=== PATIENT | male | born 1990 | race Hispanic/Latino ===

== ENCOUNTER 2019-01-29 03:02 | Emergency (ER) | payer OTHER ==
[2019-01-29 03:05] VITALS: BMI 29.4
--- NOTE | 2019-01-29 05:43 | ED PDOC ---
HPI: Psych/Substance Abuse Time Seen by Provider: 01/29/19 03:04 Chief Complaint (Nursing): Alcohol Ingestion Chief Complaint (Provider): Alcohol Ingestion ED Caveat: Intoxicated History Per: EMS History/Exam Limitations: intoxication Additional Complaint(s): 28 years old male brought in by EMS for alcohol intoxication. Patient admits to drinking alcohol tonight. He offers no complaints and denies any drugs or injuries. History is limited due to patient's intoxicated state. PMD: None provided Past Medical History Reviewed: Historical Data, Nursing Documentation, Vital Signs Vital Signs: Last Vital Signs Temp 97.5 F L 01/29/19 03:05 Pulse 88 01/29/19 03:05 Resp 18 01/29/19 03:05 BP 132/81 01/29/19 03:05 Pulse Ox 98 01/29/19 03:05 - Medical History PMH: No Chronic Diseases - Surgical History Surgical History: No Surg Hx - Family History Family History: States: Unknown Family Hx - Social History Alcohol: Social Drugs: Denies - Immunization History Hx Tetanus Toxoid Vaccination: Yes - Home Medications Home Medications: Ambulatory Orders Medication Instructions Recorded Fish Oil 1 tab PO DAILY 07/15/16 Multivitamin [Multivitamins] 1 tab PO DAILY 07/15/16 - Allergies Allergies/Adverse Reactions: Allergies Allergy/AdvReac Type Severity Reaction Status Date / Time No Known Allergies Allergy Unverified 01/29/19 03:05 Review of Systems Review Of Systems: ROS cannot be obtained secondary to pt's inabilty to answer questions. Physical Exam - Reviewed Nursing Documentation Reviewed: Yes Vital Signs Reviewed: Yes - Physical Exam Appears: Positive for: No Acute Distress. Negative for: Non-toxic (intoxicated appearing) Head Exam: Positive for: ATRAUMATIC, NORMOCEPHALIC Skin: Positive for: Normal Color, Warm, Dry Eye Exam: Positive for: Normal appearance, EOMI, PERRL Neck: Positive for: Normal, Painless ROM, Supple Cardiovascular/Chest: Positive for: Regular Rate, Rhythm. Negative for: Murmur Respiratory: Positive for: Normal Breath Sounds. Negative for: Respiratory Distress Gastrointestinal/Abdominal: Positive for: Normal Exam, Soft. Negative for: Tenderness Back: Positive for: Normal Inspection. Negative for: L CVA Tenderness, R CVA Tenderness Extremity: Positive for: Normal ROM - ECG O2 Sat by Pulse Oximetry: 98 (RA) Pulse Ox Interpretation: Normal Medical Decision Making Medical Decision Making: Time: 336 A/P: Alcohol intoxication without signs of injury --Will monitor for sobriety 630 --Patient is awake alert, steady gait, suitable for discharge Scribe Attestation: Documented by Karely Adams, acting as a scribe for Dino Franks MD. Provider Scribe Attestation: All medical record entries made by the Scribe were at my direction and personally dictated by me. I have reviewed the chart and agree that the record accurately reflects my personal performance of the history, physical exam, medical decision making, and the department course for this patient. I have also personally directed, reviewed, and agree with the discharge instructions and disposition. Disposition - Clinical Impression Clinical Impression: Alcohol abuse - Patient ED Disposition Is Patient to be Admitted: No - Disposition Referrals: Alcoholics Anonymous [Outside] Disposition: Routine/Home Disposition Time: 06:55 Condition: IMPROVED Instructions: Effects of Alcohol on Your Health Forms: Unmetric (Namibian)
[2019-01-29 07:02] VITALS: BP 123/74; PULSE 76; RESP 19; TEMP 98.2; O2SAT 99
== END 2019-01-29 07:03 | disposition home or self-care (01) ==
LOC: H.ER 03:02
DX: F10.129 Alcohol abuse with intoxication, unspecified (principal)